=== PATIENT | female | born 1995 | race Caucasian/White ===

== ENCOUNTER 2018-03-25 10:44 | Inpatient (IN) | payer OTHER ==
[~2018-03-25] VITALS: Ht 167.6 cm; Wt 103.4 kg
[2018-03-25] MEDS ORDERED: PREN-546 PO (11:32)
[2018-03-25] MEDS ORDERED: LACTATED RINGERS 1,000 ML IV SCH (11:33)
[2018-03-25 12:29] LABS: BASOPHILS % (AUTO) 0.5 % (0.0-2.0); EOSINOPHILS % (AUTO) 0.5 % (0.0-4.0); HEMATOCRIT 38.6 % (36-48); HEMOGLOBIN 12.8 g/dL (12.0-16.0); LYMPHOCYTES # (AUTO) 1.5 K/uL (2.5-16.5); LYMPHOCYTES % (AUTO) 17.1 % (20.5-51.1); MEAN CORPUSCULAR HEMOGLOBIN 28 pg (27-31); MEAN CORPUSCULAR HGB CONC 33 g/dL (33-37); MEAN CORPUSCULAR VOLUME 84.9 fL (80-94); MONOCYTES # (AUTO) 0.6 K/uL (0.8-1.0); MONOCYTES % (AUTO) 6.3 % (1.7-9.3); NEUTROPHILS # (AUTO) 6.6 K/uL (1.8-7.7); NEUTROPHILS % (AUTO) 75.6 % (42.2-75.2); PLATELET COUNT (AUTO) 256 K/uL (140-450); RED BLOOD CELL COUNT(AUTO) 4.55 MIL/uL (4.20-5.40); RED CELL DISTRIBUTION WIDTH 14.2 % (11.6-13.7); WHITE BLOOD COUNT (AUTO) 8.7 K/uL (4.8-10.8)
[2018-03-25 13:44] VITALS: BP 118/87
[2018-03-25 14:35] LABS: APPEARANCE,URINE CLEAR (CLEAR); BILIRUBIN,URINE NEGATIVE (NEGATIVE); BLOOD, URINE TRACE-I (NEGATIVE); COLOR,URINE YELLOW (YELLOW); LEUKOCYTE ESTERASE ,URINE 1+ (NEGATIVE); NITRITE, URINE NEGATIVE (NEGATIVE); PH,URINE 6.5 (5.0-9.0); UGLUCOSE NEGATIVE (NEGATIVE)
[2018-03-25 15:06] LABS: RBC,URINE 3-10 (FEW) /HPF (0-5); WBC,URINE 16-25 (MOD) /HPF (0-5)
[2018-03-25] MEDS ORDERED: TERBUTALINE 1 MG/ML VIAL SUBQ ONE (15:37)
[2018-03-25] MEDS ORDERED: TERBUTALINE 1 MG/ML VIAL SUBQ SCH (15:40)
[2018-03-25] MEDS ORDERED: OXYTOCIN 10 UNITS/ML VIAL ONE ×2 (17:08→17:10)
[2018-03-25] MEDS ORDERED: BUPIVACAINE-MPF 0.75% 10 ML VIAL INJ ONE (17:10)
[2018-03-25] MEDS ORDERED: ONDANSETRON 4 MG/2 ML VIAL ONE (17:10)
[2018-03-25] MEDS ORDERED: ceFAZolin 1,000 MG VIAL ONE (17:10)
[2018-03-25] MEDS ORDERED: KETAMINE 500 MG/5 ML VIAL ONE (17:18)
[2018-03-25] MEDS ORDERED: fentaNYL 0.05 MG/ML VIAL ONE (17:18)
[2018-03-25] MEDS ORDERED: MIDAZOLAM 2 MG/2 ML VIAL ONE (17:18)
[2018-03-25] MEDS ORDERED: BUPIVACAINE/DEXT 0.75% SPINAL 2 ML AMP INJ ONE (17:19)
[2018-03-25] MEDS ORDERED: MORPHINE PRES FREE 10 MG/10 ML AMP IV ONE (17:19)
[2018-03-25] MEDS ORDERED: ceFAZolin 1,000 MG VIAL IVP ONE (17:37)
[2018-03-25] MEDS ORDERED: METHYLERGONOVINE 0.2 MG/ML AMP IM PRN (17:55)
[2018-03-25] MEDS ORDERED: TRIMETHOBENZAMIDE 200 MG/2 ML SYR IM PRN (17:55)
[2018-03-25] MEDS ORDERED: TEMAZEPAM 15 MG CAP PO PRN (17:55)
[2018-03-25] MEDS ORDERED: MEASLES, MUMPS, AND RUBELLA 1 VIAL SQVAC PRN (17:55)
[2018-03-25] MEDS ORDERED: IBUPROFEN 800 MG TAB PO PRN (17:55)
[2018-03-25] MEDS ORDERED: SIMETHICONE 80 MG TAB.CHEW PO PRN (17:55)
[2018-03-25] MEDS ORDERED: diphenhydrAMINE 50 MG/ML VIAL IVP PRN (18:00)
[2018-03-25] MEDS ORDERED: KETOROLAC 30 MG/ML VIAL IVP PRN (18:00)
[2018-03-25] MEDS ORDERED: OXYTOCIN 20 UNITS/LR PREMIX 1,000 ML IV ONE (18:14)
[2018-03-25] MEDS: DOCUSATE SOD/SENNA 50/8.6 MG 1 TAB PO SCH (21:00)
[2018-03-25] MEDS: OXYTOCIN 20 UNITS in LACTATED RINGERS 1,000 ML IV SCH (23:16)
[2018-03-26 06:36] LABS: BASOPHILS % (AUTO) 0.2 % (0.0-2.0); HEMATOCRIT 32.9 % (36-48); LYMPHOCYTES # (AUTO) 0.9 K/uL (2.5-16.5); LYMPHOCYTES % (AUTO) 7.1 % (20.5-51.1); MEAN CORPUSCULAR HEMOGLOBIN 28 pg (27-31); MEAN CORPUSCULAR HGB CONC 33 g/dL (33-37); MEAN CORPUSCULAR VOLUME 84.6 fL (80-94); MONOCYTES # (AUTO) 0.6 K/uL (0.8-1.0); MONOCYTES % (AUTO) 4.5 % (1.7-9.3); NEUTROPHILS # (AUTO) 11.3 K/uL (1.8-7.7); NEUTROPHILS % (AUTO) 88.2 % (42.2-75.2); PLATELET COUNT (AUTO) 208 K/uL (140-450); RED BLOOD CELL COUNT(AUTO) 3.88 MIL/uL (4.20-5.40); RED CELL DISTRIBUTION WIDTH 14.5 % (11.6-13.7); WHITE BLOOD COUNT (AUTO) 12.8 K/uL (4.8-10.8)
[2018-03-26] MEDS ORDERED: OXYTOCIN 20 UNITS/LR PREMIX 1,000 ML IV ONE (06:48)
[2018-03-26] MEDS ORDERED: LACTATED RINGERS 1,000 ML IV SCH (06:50)
--- NOTE | 2018-03-26 08:57 | NUR ---
PATIENT HAS BEEN SCREENED AND CATEGORIZED LOW NUTRITION RISK. PATIENT WILL BE SEEN WITHIN 7 DAYS OF ADMISSION. 03/31/[address]
[2018-03-26] MEDS: OXYTOCIN 20 UNITS in LACTATED RINGERS 1,000 ML IV SCH (10:20)
[2018-03-26] MEDS: oxyCODONE/APAP 5/325 MG 1 TAB TAB PO PRN (19:58)
[2018-03-26] MEDS: DOCUSATE SOD/SENNA 50/8.6 MG 1 TAB PO SCH (21:24)
[2018-03-27] MEDS: oxyCODONE/APAP 5/325 MG 1 TAB TAB PO PRN ×3 (01:05→10:35)
[2018-03-27] MEDS: HYDROcodone/APAP 5/325 MG 1 TAB TAB PO PRN ×2 (14:42→21:20)
[2018-03-27] MEDS: DOCUSATE SOD/SENNA 50/8.6 MG 1 TAB PO SCH (21:19)
[2018-03-28] MEDS: oxyCODONE/APAP 5/325 MG 1 TAB TAB PO PRN (12:08)
[2018-03-28] MEDS ORDERED: IBUP-1842 PO (17:17)
== END 2018-03-28 19:15 | disposition home or self-care (01) | DRG 540 ==
LOC: MLD 10:44 → MFCC 19:27
PROVIDERS: ADMIT Obstetrics & Gynecology; ATTEND Obstetrics & Gynecology
PROC: 10D00Z1 Extraction of Products of Conception, Low, Open Approach (ICD-10-PCS; principal; 2018-03-25 16:30)
PROC: 3E0234Z Introduction of Serum, Toxoid and Vaccine into Muscle, Percutaneous Approach (ICD-10-PCS; 2018-03-26)
DX: O32.1XX0 Maternal care for breech presentation, not applicable or unspecified (principal); Z23 Encounter for immunization; Z37.0 Single live birth; Z3A.39 39 weeks gestation of pregnancy
CPT/HCPCS: 36415; 51702; 76815; 81001; 85025; 86592; 86886; 86900; 86901; 87086; 90715; J0690; J1885; J2250; J2270; J2405; J2590; J3010; J3105; J3490; J7060; J7120; Q0092